=== PATIENT | male | born 1990 | race Caucasian/White ===

== ENCOUNTER 2023-11-17 18:10 | Emergency (ER) | payer OTHER ==
[~2023-11-17] VITALS: Ht 185.4 cm; Wt 143.1 kg
[2023-11-17] MEDS ORDERED: GABA-284 PO (18:20)
[2023-11-17] MEDS ORDERED: ATEN25TA PO (18:20)
[2023-11-17] MEDS ORDERED: EXCETAB32 PO (18:20)
[2023-11-17] MEDS ORDERED: LISI20TA33 PO (18:23)
[2023-11-17] MEDS ORDERED: DULO1CAP4 PO (18:23)
[2023-11-17] MEDS ORDERED: DULO1CAP6 PO (18:23)
[2023-11-17 18:47] LABS: BASO % 0.3 % (0.0-1.0); EOS # 0.2 10^3/uL (0.0-0.5); EOS % 1.6 % (0.0-3.0); HEMATOCRIT 42.3 % (42.0-52.0); HEMOGLOBIN 14.4 g/dl (13.5-17.5); LYMPH # 3.9 10^3/uL (1.5-5.0); LYMPH % 32.1 % (24.0-44.0); MEAN CORPUSCULAR HEMOGLOBIN 30.8 pg (27.0-33.0); MEAN CORPUSCULAR VOLUME 90.6 fl (80.0-96.0); MONO # 0.7 10^3/uL (0.0-0.8); MONO % 6.1 % (2.0-8.0); NEUTROPHILS # 7.1 10^3/uL (1.5-8.5); NEUTROPHILS % 58.5 % (36.0-66.0); PLATELET COUNT, AUTOMATED 247 10^3/uL (150-450); RED BLOOD COUNT 4.67 10^6/uL (4.30-6.10); WHITE BLOOD COUNT 12.2 10^3/uL (4.0-10.0)
[2023-11-17] MEDS: NITROGLYCERIN 0.4MG SUBL TABLET SL PRN (18:53)
[2023-11-17 19:09] LABS: LIPASE 74 U/L (12-53)
[2023-11-17 19:11] LABS: ALBUMIN 4.1 G/DL (3.2-5.2); ALKALINE PHOSPHATASE 89 U/L (46-116); ALT/SGPT 57 U/L (7.0-40); AST/SGOT 35 U/L (<34); BILIRUBIN,DIRECT < 0.1 MG/DL (<0.4); BILIRUBIN,TOTAL 0.2 MG/DL (0.3-1.2); BLOOD UREA NITROGEN 13 MG/DL (9-23); CARBON DIOXIDE LEVEL 28 MMOL/L (20-31); CHLORIDE LEVEL 106 MMOL/L (98-107); CK-MB VALUE MASS < 1.0 NG/ML (<3.6); CREATININE FOR GFR 0.64 MG/DL (0.70-1.30); GLOMERULAR FILTRATION RATE > 60.0 (>60); GLUCOSE, FASTING 111 MG/DL (60-100); POTASSIUM SERUM 4.1 MMOL/L (3.5-5.1); SODIUM LEVEL 136 MMOL/L (136-145); TOTAL PROTEIN 6.5 G/DL (5.7-8.2)
[2023-11-17 19:15] LABS: FREE T4 0.96 NG/DL (0.89-1.76); THYROID STIMULATING HORMONE 1.135 uIU/ML (0.55-4.78)
[2023-11-17 19:19] LABS: CPK CREATINE PHOSPHOKINASE 169 U/L (46-171); MB/CK RELATIVE INDEX 0.59 (< OR =4)
[2023-11-17 19:26] VITALS: BP 155/71
[2023-11-17 20:20] LABS: CK-MB VALUE MASS < 1.0 NG/ML (<3.6)
[2023-11-17 20:22] LABS: CPK CREATINE PHOSPHOKINASE 165 U/L (46-171)
[2023-11-17] MEDS: KETOROLAC 30 MG/ML 1ML VIAL IV ONE (20:23)
[2023-11-17 21:15] VITALS: BP 148/69; TEMP 98; O2SAT 97
== END 2023-11-17 21:51 | disposition home or self-care (01) ==
LOC: M ED 18:10
DX: R07.9 Chest pain, unspecified (principal); I45.10 Unspecified right bundle-branch block; I45.81 Long QT syndrome; I10 Essential (primary) hypertension; F17.200 Nicotine dependence, unspecified, uncomplicated; Z79.82 Long term (current) use of aspirin; Z79.891 Long term (current) use of opiate analgesic; Z79.811 Long term (current) use of aromatase inhibitors; Z79.899 Other long term (current) drug therapy
CPT/HCPCS: 71045; 80048; 80076; 82550; 82553; 83690; 83880; 84439; 84443; 84484; 85025; 85379; 93005; 93041; 94760; 96374; 99285; J1885

== ENCOUNTER 2023-12-02 11:27 | Emergency (ER) | payer OTHER ==
[~2023-12-02] VITALS: Ht 185.4 cm; Wt 144.0 kg
[~2023-12-02 11:27] MED LIST: ATEN25TA PO; DULO1CAP4 PO; DULO1CAP6 PO; EXCETAB32 PO; GABA-284 PO; LISI20TA33 PO
[2023-12-02 12:27] LABS: BASO % 0.3 % (0.0-1.0); EOS # 0.1 10^3/uL (0.0-0.5); EOS % 1.5 % (0.0-3.0); HEMATOCRIT 39.3 % (42.0-52.0); HEMOGLOBIN 13.7 g/dl (13.5-17.5); LYMPH # 3.8 10^3/uL (1.5-5.0); LYMPH % 42.1 % (24.0-44.0); MEAN CORPUSCULAR HGB CONC 34.9 g/dl (32.0-36.5); MEAN CORPUSCULAR VOLUME 88.9 fl (80.0-96.0); MONO # 0.5 10^3/uL (0.0-0.8); MONO % 5.8 % (2.0-8.0); NEUTROPHILS # 4.4 10^3/uL (1.5-8.5); NEUTROPHILS % 49.1 % (36.0-66.0); PLATELET COUNT, AUTOMATED 271 10^3/uL (150-450); RED BLOOD COUNT 4.42 10^6/uL (4.30-6.10)
[2023-12-02] MEDS: ASPIRIN 325 MG TAB PO ONE (12:41)
[2023-12-02 12:52] LABS: CK-MB VALUE MASS < 1.0 NG/ML (<3.6)
[2023-12-02 12:54] LABS: BLOOD UREA NITROGEN 11 MG/DL (9-23); CALCIUM LEVEL 9.2 MG/DL (8.5-10.1); CARBON DIOXIDE LEVEL 26 MMOL/L (20-31); CHLORIDE LEVEL 107 MMOL/L (98-107); CREATININE FOR GFR 0.63 MG/DL (0.70-1.30); GLOMERULAR FILTRATION RATE > 60.0 (>60); GLUCOSE, FASTING 98 MG/DL (60-100); POTASSIUM SERUM 4.1 MMOL/L (3.5-5.1); SODIUM LEVEL 140 MMOL/L (136-145)
[2023-12-02 12:57] LABS: CPK CREATINE PHOSPHOKINASE 148 U/L (46-171); MB/CK RELATIVE INDEX 0.67 (< OR =4)
[2023-12-02] MEDS ORDERED: HOME MED LIST COMPLETE! XX SCH (13:45)
[2023-12-02 13:56] LABS: CK-MB VALUE MASS < 1.0 NG/ML (<3.6)
[2023-12-02 13:57] LABS: CPK CREATINE PHOSPHOKINASE 146 U/L (46-171); MB/CK RELATIVE INDEX 0.68 (< OR =4)
[2023-12-02 14:01] VITALS: TEMP 97.4
[2023-12-02 14:30] VITALS: BP 135/81; O2SAT 97
== END 2023-12-02 14:40 | disposition home or self-care (01) ==
LOC: M ED 11:27
DX: F41.9 Anxiety disorder, unspecified (principal); I10 Essential (primary) hypertension; Z87.891 Personal history of nicotine dependence

== ENCOUNTER 2023-12-23 08:38 | Emergency (ER) | payer OTHER ==
[~2023-12-23] VITALS: Ht 185.4 cm; Wt 137.5 kg
[2023-12-23] MEDS ORDERED: TRAZ-252 PO (08:54)
[2023-12-23] MEDS ORDERED: GABA-284 PO (08:54)
[2023-12-23 09:23] LABS: HEMATOCRIT 44.7 % (42.0-52.0); HEMOGLOBIN 15.4 g/dl (13.5-17.5); MEAN CORPUSCULAR HEMOGLOBIN 30.9 pg (27.0-33.0); MEAN CORPUSCULAR HGB CONC 34.5 g/dl (32.0-36.5); MEAN CORPUSCULAR VOLUME 89.6 fl (80.0-96.0); PLATELET COUNT, AUTOMATED 290 10^3/uL (150-450); RED BLOOD COUNT 4.99 10^6/uL (4.30-6.10); WHITE BLOOD COUNT 11.1 10^3/uL (4.0-10.0)
[2023-12-23] MEDS: KETOROLAC 30 MG/ML 1ML VIAL IV ONE (09:33)
[2023-12-23 09:48] LABS: LIPASE 59 U/L (12-53)
[2023-12-23 09:50] LABS: ALKALINE PHOSPHATASE 101 U/L (46-116); ALT/SGPT 52 U/L (7.0-40); AST/SGOT 20 U/L (<34); BILIRUBIN,DIRECT 0.3 MG/DL (<0.4); BILIRUBIN,TOTAL 0.9 MG/DL (0.3-1.2); BLOOD UREA NITROGEN 11 MG/DL (9-23); CALCIUM LEVEL 9.7 MG/DL (8.5-10.1); CARBON DIOXIDE LEVEL 27 MMOL/L (20-31); CHLORIDE LEVEL 107 MMOL/L (98-107); CK-MB VALUE MASS < 1.0 NG/ML (<3.6); CREATININE FOR GFR 0.83 MG/DL (0.70-1.30); GLOMERULAR FILTRATION RATE > 60.0 (>60); GLUCOSE, FASTING 123 MG/DL (60-100); POTASSIUM SERUM 4.8 MMOL/L (3.5-5.1); SODIUM LEVEL 137 MMOL/L (136-145); TOTAL PROTEIN 6.8 G/DL (5.7-8.2)
[2023-12-23 09:52] LABS: FREE T4 0.99 NG/DL (0.89-1.76)
[2023-12-23 09:54] LABS: CPK CREATINE PHOSPHOKINASE 131 U/L (46-171); MB/CK RELATIVE INDEX 0.76 (< OR =4)
[2023-12-23 10:13] LABS: ATYPICAL LYMPH 5 % (0-5); EOSINOPHILS 1 % (0-3); LYMPHOCYTES 43 % (16-44); MONOCYTES 2 % (0-5); NEUTROPHILS 49 % (28-66)
[2023-12-23 10:14] LABS: PLATELET ESTIMATE NORMAL (NORMAL)
[2023-12-23] MEDS ORDERED: GABA800T4 PO (10:44)
[2023-12-23] MEDS ORDERED: GABA-1171 PO (10:44)
[2023-12-23] MEDS ORDERED: ISOVUE-370 76% 100ML VIAL As Ordered ONE (10:45)
[2023-12-23] MEDS ORDERED: HOME MED LIST COMPLETE! XX SCH (10:45)
[2023-12-23 11:02] LABS: CK-MB VALUE MASS < 1.0 NG/ML (<3.6)
[2023-12-23 11:11] LABS: CPK CREATINE PHOSPHOKINASE 142 U/L (46-171)
[2023-12-23] MEDS ORDERED: ELIQ5TAB PO (11:59)
[2023-12-23 12:59] LABS: VENOUS BASE EXCESS -2.1 (-2.0-2.0); VENOUS HCO3 22.9 MMOL/L (23.0-27.0); VENOUS O2 SATURATION 95.9 % (60.0-80.0); VENOUS PARTIAL PRESSURE CO2 40.3 mmHg (38.0-50.0); VENOUS PARTIAL PRESSURE O2 78.8 mmHg (30.0-50.0); VENOUS PH 7.373 UNITS (7.330-7.430); VENOUS STANDARD HCO3 22.7 MMOL/L; VENOUS TOTAL CO2 24.2 MMOL/L (24.0-28.0)
[2023-12-23 13:19] LABS: INR 1.01; PARTIAL THROMBOPLASTIN TIME 29.1 SECONDS (24.8-34.2)
[2023-12-23] MEDS: ALPRAZolam 0.25 MG TAB PO ONE (13:35)
[2023-12-23] MEDS: APIXABAN 5 MG TAB (ELIQUIS) PO ONE (13:35)
[2023-12-23 13:47] VITALS: BP 152/73; TEMP 97.8; O2SAT 97
[2023-12-23 15:16] LABS: PTT LUPUS TYPE ANTICOAG SCREEN 6.69 (0-1.20)
[2023-12-23 15:24] LABS: DRVV CONFIRM 80.1 SECONDS; LUPUS CONFIRM RATIO 2.07
[2023-12-23 15:25] LABS: NORMALIZED RATIO 3.23 (0.00-1.20)
[2023-12-26 18:11] LABS: HEXAGONAL PHASE PHOSPHOLIPID 3 sec (0-11)
[2024-01-06 15:11] LABS: ANTI THROMBIN 3 ANTIGEN IMMUNO 110 % (72-124); ANTI THROMBIN 3 FUNCT ACTIVITY 137 % (75-135); CARDIOLIPIN IGA ANTIBODY <9 APL U/mL (0-11); CARDIOLIPIN IGG ANTIBODY <9 GPL U/mL (0-14); CARDIOLIPIN IGM ANTIBODY <9 MPL U/mL (0-12); PHOSPHOLIPIDS LEVEL 205 mg/dL (127-261); PROTEIN C FUNCTIONAL ACTIVITY 169 % (73-180); PROTEIN S FUNCTIONAL ACTIVITY 118 % (63-140)
== END 2023-12-23 13:49 | disposition home or self-care (01) ==
LOC: M ED 08:38
DX: I26.99 Other pulmonary embolism without acute cor pulmonale (principal); I10 Essential (primary) hypertension; E78.5 Hyperlipidemia, unspecified; F41.9 Anxiety disorder, unspecified; Z87.891 Personal history of nicotine dependence; Z82.49 Family history of ischemic heart disease and other diseases of the circulatory system; Z79.899 Other long term (current) drug therapy
CPT/HCPCS: 71046; 71275; 80048; 80076; 81240; 81241; 82550; 82553; 82803; 83690; 83880; 84311; 84439; 84443; 84484; 85025; 85300; 85301; 85303; 85305; 85598; 85610; 85613; 85730; 86147; 93005; 93041; 93970; 94760; 96374; 99285; J1885; Q9967

== ENCOUNTER 2023-12-26 07:08 | Observation (INO) | payer OTHER ==
[~2023-12-26] VITALS: Ht 185.4 cm; Wt 138.0 kg
[2023-12-26] VITALS (12 sets, daily range): BP systolic 142–153; BP diastolic 74–83; TEMP 97.3–97.5; O2SAT 92–95
[~2023-12-26 07:08] MED LIST changes: +ELIQ5TAB PO; +GABA-1171 PO; +GABA800T4 PO; +TRAZ-252 PO
[2023-12-26 07:49] LABS: BASO % 0.3 % (0.0-1.0); EOS # 0.2 10^3/uL (0.0-0.5); EOS % 1.4 % (0.0-3.0); HEMATOCRIT 41.3 % (42.0-52.0); HEMOGLOBIN 14.2 g/dl (13.5-17.5); LYMPH # 4.2 10^3/uL (1.5-5.0); LYMPH % 39.4 % (24.0-44.0); MEAN CORPUSCULAR HEMOGLOBIN 30.7 pg (27.0-33.0); MEAN CORPUSCULAR HGB CONC 34.4 g/dl (32.0-36.5); MEAN CORPUSCULAR VOLUME 89.4 fl (80.0-96.0); MONO # 0.6 10^3/uL (0.0-0.8); MONO % 5.9 % (2.0-8.0); NEUTROPHILS # 5.6 10^3/uL (1.5-8.5); NEUTROPHILS % 52.5 % (36.0-66.0); PLATELET COUNT, AUTOMATED 270 10^3/uL (150-450); RED BLOOD COUNT 4.62 10^6/uL (4.30-6.10); WHITE BLOOD COUNT 10.6 10^3/uL (4.0-10.0)
[2023-12-26] MEDS ORDERED: HOME MED LIST COMPLETE! XX SCH ×2 (07:55→11:50)
[2023-12-26] MEDS ORDERED: ELIQ5TAB PO (07:55)
[2023-12-26 08:05] LABS: INR 1.02; PARTIAL THROMBOPLASTIN TIME 32.2 SECONDS (24.8-34.2); PROTHROMBIN TIME 13.1 SECONDS (12.5-14.5)
[2023-12-26 08:11] LABS: LIPASE 38 U/L (12-53)
[2023-12-26 08:13] LABS: CPK CREATINE PHOSPHOKINASE 88 U/L (46-171)
[2023-12-26 08:18] LABS: ALBUMIN 3.8 G/DL (3.2-5.2); ALKALINE PHOSPHATASE 98 U/L (46-116); ALT/SGPT 54 U/L (7.0-40); AST/SGOT 26 U/L (<34); BILIRUBIN,DIRECT 0.2 MG/DL (<0.4); BILIRUBIN,TOTAL 0.5 MG/DL (0.3-1.2); BLOOD UREA NITROGEN 10 MG/DL (9-23); CALCIUM LEVEL 8.8 MG/DL (8.5-10.1); CARBON DIOXIDE LEVEL 25 MMOL/L (20-31); CHLORIDE LEVEL 105 MMOL/L (98-107); CK-MB VALUE MASS < 1.0 NG/ML (<3.6); CREATININE FOR GFR 0.63 MG/DL (0.70-1.30); FREE T4 1.06 NG/DL (0.89-1.76); GLOMERULAR FILTRATION RATE > 60.0 (>60); GLUCOSE, FASTING 110 MG/DL (60-100); MB/CK RELATIVE INDEX 1.13 (< OR =4); SODIUM LEVEL 138 MMOL/L (136-145); THYROID STIMULATING HORMONE 2.879 uIU/ML (0.55-4.78); TOTAL PROTEIN 6.4 G/DL (5.7-8.2)
[2023-12-26] MEDS ORDERED: ISOVUE-370 76% 100ML VIAL As Ordered ONE (08:29)
[2023-12-26] MEDS: APIXABAN 5 MG TAB (ELIQUIS) PO SCH (12:30)
[2023-12-26] MEDS ORDERED: NITROGLYCERIN 0.4MG SUBL TABLET SL STA (18:45)
[2023-12-26] MEDS: KETOROLAC 30 MG/ML 1ML VIAL IV ONE (18:59)
[2023-12-26] MEDS: PANTOPRAZOLE 40MG TAB (PROTONIX) PO ONE (19:04)
[2023-12-26] MEDS ORDERED: GABAPENTIN 100 MG CAP PO PRN (19:45)
[2023-12-26] MEDS ORDERED: atenoloL 25 MG TAB PO SCH (21:00)
[2023-12-26] MEDS: atenoloL 25 MG TAB PO SCH (21:56)
[2023-12-26] MEDS: traZODone 25MG PER 1/2 TABLET PO SCH (21:56)
[2023-12-26] MEDS: SUCRALFATE SUSP 1GM/10ML UD PO SCH (21:56)
[2023-12-26] MEDS: GABAPENTIN 400MG CAP PO SCH (21:57)
[2023-12-27] VITALS (15 sets, daily range): BP systolic 102–143; BP diastolic 56–78; TEMP 97–97.6; O2SAT 93–99
[2023-12-27] MEDS ORDERED: E-Z-PAQUE 96% w/w SUSP 176GM BTL As Ordered ONE (08:11)
[2023-12-27] MEDS ORDERED: E-Z-GAS II EFFERVESCENT PACKET (SODIUM BICARB./CITRIC ACID/SIMETHICONE) As Ordered ONE (08:11)
[2023-12-27] MEDS ORDERED: E-Z-HD 98% w/w 340GM SUSP BTL As Ordered ONE (08:12)
[2023-12-27] MEDS: PANTOPRAZOLE 40MG TAB (PROTONIX) PO SCH (10:47)
[2023-12-27] MEDS: DULoxetine 30MG CAPSULE (CYMBALTA) PO SCH (10:47)
[2023-12-27] MEDS: ACETAMINOPHEN 500 MG TAB PO PRN (12:55)
[2023-12-28] VITALS: BP 141/64; TEMP 97.5; O2SAT 95
[2023-12-28 04:09] VITALS: BP 121/58; TEMP 97.7; O2SAT 94
[2023-12-28 06:09] LABS: BASO # 0.1 10^3/uL (0.0-0.2); BASO % 0.5 % (0.0-1.0); EOS # 0.2 10^3/uL (0.0-0.5); HEMATOCRIT 41.1 % (42.0-52.0); LYMPH # 4.6 10^3/uL (1.5-5.0); LYMPH % 42.1 % (24.0-44.0); MEAN CORPUSCULAR HEMOGLOBIN 30.8 pg (27.0-33.0); MEAN CORPUSCULAR HGB CONC 34.1 g/dl (32.0-36.5); MEAN CORPUSCULAR VOLUME 90.5 fl (80.0-96.0); MONO # 0.7 10^3/uL (0.0-0.8); MONO % 6.8 % (2.0-8.0); NEUTROPHILS # 5.2 10^3/uL (1.5-8.5); NEUTROPHILS % 47.9 % (36.0-66.0); PLATELET COUNT, AUTOMATED 264 10^3/uL (150-450); RED BLOOD COUNT 4.54 10^6/uL (4.30-6.10); WHITE BLOOD COUNT 10.9 10^3/uL (4.0-10.0)
[2023-12-28 06:34] LABS: BLOOD UREA NITROGEN 13 MG/DL (9-23); CALCIUM LEVEL 9.3 MG/DL (8.5-10.1); CARBON DIOXIDE LEVEL 27 MMOL/L (20-31); CHLORIDE LEVEL 105 MMOL/L (98-107); CREATININE FOR GFR 0.73 MG/DL (0.70-1.30); GLOMERULAR FILTRATION RATE > 60.0 (>60); GLUCOSE, FASTING 106 MG/DL (60-100); MAGNESIUM LEVEL 2.2 MG/DL (1.8-2.4); POTASSIUM SERUM 4.5 MMOL/L (3.5-5.1); SODIUM LEVEL 139 MMOL/L (136-145)
[2023-12-28 07:55] VITALS: BP 133/78; TEMP 97.7; O2SAT 95
[2023-12-28 09:30] VITALS: BP 133/78
[2023-12-28] MEDS ORDERED: PANT40TA29 PO (11:06)
[2023-12-28] MEDS ORDERED: SUCR1ORA PO (11:06)
[2023-12-31] MEDS ORDERED: APIXABAN 5 MG TAB (ELIQUIS) PO SCH (09:00)
[2024-01-11 17:11] LABS: ANTI THROMBIN 3 ANTIGEN IMMUNO 107 % (72-124); ANTI THROMBIN 3 FUNCT ACTIVITY 166 % (75-135); ANTINUCLEAR ANTIBODIES DIRECT Negative (Negative)
== END 2023-12-28 12:26 | disposition home or self-care (01) ==
LOC: EDBD 07:08 → M ED 07:08 → M ED INP 11:42 → INTOOBSV 11:42 → ENRESERV 12:20 → M PCU 13:00
PROVIDERS: ADMIT General Practice; ATTEND General Practice
DX: R55 Syncope and collapse (principal); I26.99 Other pulmonary embolism without acute cor pulmonale; I10 Essential (primary) hypertension; G43.909 Migraine, unspecified, not intractable, without status migrainosus; H57.04 Mydriasis; R20.2 Paresthesia of skin; R00.2 Palpitations; E78.5 Hyperlipidemia, unspecified; G47.00 Insomnia, unspecified; F32.A Depression, unspecified; F43.10 Post-traumatic stress disorder, unspecified; G89.29 Other chronic pain; K58.9 Irritable bowel syndrome, unspecified; J44.9 Chronic obstructive pulmonary disease, unspecified; G47.33 Obstructive sleep apnea (adult) (pediatric); E66.9 Obesity, unspecified; K44.9 Diaphragmatic hernia without obstruction or gangrene; K21.9 Gastro-esophageal reflux disease without esophagitis; F41.9 Anxiety disorder, unspecified; Z87.891 Personal history of nicotine dependence; Z82.49 Family history of ischemic heart disease and other diseases of the circulatory system; Z79.899 Other long term (current) drug therapy; Z79.01 Long term (current) use of anticoagulants
CPT/HCPCS: 36415; 70551; 71045; 71275; 74246; 80047; 80048; 80076; 81240; 81241; 82550; 82553; 83690; 83735; 84439; 84443; 84484; 85025; 85300; 85301; 85384; 85610; 85730; 86038; 93005; 93041; 93306; 94760; 96374; 97161; 99285; G0378; J1885; Q9967

== ENCOUNTER 2024-03-17 17:50 | Emergency (ER) | payer OTHER ==
[~2024-03-17] VITALS: Ht 185.4 cm; Wt 137.7 kg
[~2024-03-17 17:50] MED LIST changes: +PANT40TA29 PO; +SUCR1ORA PO
[2024-03-17] MEDS ORDERED: PANT20TA6 PO (18:08)
[2024-03-17] MEDS ORDERED: LOSA50TA5 PO (18:09)
[2024-03-17] MEDS ORDERED: ZOLO100T PO (18:09)
[2024-03-17] MEDS ORDERED: TRAZ-257 PO (18:09)
[2024-03-17] MEDS ORDERED: BISO5TAB14 PO (18:09)
[2024-03-17] MEDS ORDERED: VITA200012 PO (18:25)
[2024-03-17 18:54] LABS: BASO # 0.1 10^3/uL (0.0-0.2); BASO % 0.5 % (0.0-1.0); EOS # 0.2 10^3/uL (0.0-0.5); EOS % 1.8 % (0.0-3.0); HEMATOCRIT 44.9 % (42.0-52.0); HEMOGLOBIN 15.6 g/dl (13.5-17.5); LYMPH # 1.9 10^3/uL (1.5-5.0); LYMPH % 19.5 % (24.0-44.0); MEAN CORPUSCULAR HEMOGLOBIN 30.5 pg (27.0-33.0); MEAN CORPUSCULAR HGB CONC 34.7 g/dl (32.0-36.5); MEAN CORPUSCULAR VOLUME 87.9 fl (80.0-96.0); MONO # 0.8 10^3/uL (0.0-0.8); MONO % 7.8 % (2.0-8.0); NEUTROPHILS # 6.9 10^3/uL (1.5-8.5); NEUTROPHILS % 69.8 % (36.0-66.0); PLATELET COUNT, AUTOMATED 278 10^3/uL (150-450); RED BLOOD COUNT 5.11 10^6/uL (4.30-6.10); WHITE BLOOD COUNT 9.8 10^3/uL (4.0-10.0)
[2024-03-17 19:06] LABS: INR 1.08; PARTIAL THROMBOPLASTIN TIME 33.4 SECONDS (24.8-34.2); PROTHROMBIN TIME 13.7 SECONDS (12.5-14.5)
[2024-03-17 19:31] LABS: THYROID STIMULATING HORMONE 0.843 uIU/ML (0.55-4.78)
[2024-03-17 19:37] LABS: CK-MB VALUE MASS < 1.0 NG/ML (<3.6)
[2024-03-17 19:39] LABS: CPK CREATINE PHOSPHOKINASE 131 U/L (46-171); MB/CK RELATIVE INDEX 0.76 (< OR =4)
[2024-03-17 19:40] LABS: ALKALINE PHOSPHATASE 106 U/L (46-116); ALT/SGPT 34 U/L (7.0-40); AST/SGOT 15 U/L (<34); BILIRUBIN,DIRECT 0.1 MG/DL (<0.4); BILIRUBIN,TOTAL 0.5 MG/DL (0.3-1.2); BLOOD UREA NITROGEN 10 MG/DL (9-23); CALCIUM LEVEL 9.6 MG/DL (8.5-10.1); CARBON DIOXIDE LEVEL 24 MMOL/L (20-31); CHLORIDE LEVEL 107 MMOL/L (98-107); CREATININE FOR GFR 0.76 MG/DL (0.70-1.30); GLOMERULAR FILTRATION RATE > 60.0 (>60); GLUCOSE, FASTING 117 MG/DL (60-100); POTASSIUM SERUM 3.9 MMOL/L (3.5-5.1); SODIUM LEVEL 139 MMOL/L (136-145); TOTAL PROTEIN 6.6 G/DL (5.7-8.2)
[2024-03-17] MEDS ORDERED: ISOVUE-370 76% 100ML VIAL As Ordered ONE (19:48)
[2024-03-17 21:17] LABS: CK-MB VALUE MASS < 1.0 NG/ML (<3.6)
[2024-03-17 21:19] LABS: CPK CREATINE PHOSPHOKINASE 127 U/L (46-171); MB/CK RELATIVE INDEX 0.78 (< OR =4)
[2024-03-17 22:15] VITALS: BP 125/57; TEMP 98.5; O2SAT 95; O2SAT 97
== END 2024-03-17 22:36 | disposition home or self-care (01) ==
LOC: M ED 17:50
DX: R06.02 Shortness of breath (principal); R94.31 Abnormal electrocardiogram [ECG] [EKG]; F41.9 Anxiety disorder, unspecified; I10 Essential (primary) hypertension; F43.10 Post-traumatic stress disorder, unspecified; F32.A Depression, unspecified; F17.210 Nicotine dependence, cigarettes, uncomplicated; Z79.899 Other long term (current) drug therapy
CPT/HCPCS: 36415; 71046; 71275; 80048; 80076; 82550; 82553; 83880; 84443; 84484; 85025; 85610; 85730; 93005; 93041; 94760; 99285; Q9967

== ENCOUNTER 2024-04-20 13:55 | Emergency (ER) | payer OTHER ==
[~2024-04-20] VITALS: Ht 185.4 cm; Wt 141.6 kg
[~2024-04-20 13:55] MED LIST changes: +BISO5TAB14 PO; +LOSA50TA5 PO; +PANT20TA6 PO; +TRAZ-257 PO; +VITA200012 PO; +ZOLO100T PO
[2024-04-20 17:20] VITALS: BP 136/76; TEMP 97.9; O2SAT 98
== END 2024-04-20 17:20 | disposition home or self-care (01) ==
LOC: M ED 13:55
DX: H11.32 Conjunctival hemorrhage, left eye (principal); Z79.01 Long term (current) use of anticoagulants; Z79.899 Other long term (current) drug therapy

== ENCOUNTER → 2024-07-13 | Outpatient (CLI) | payer OTHER ==
[~2024-07-13] MED LIST changes: +ELIQ2.5T PO; +GABA-1635 PO; -GABA800T4 PO
== END ==
LOC: M SLEEP 20:00
PROVIDERS: ATTEND Nurse Practitioner Family
DX: G47.33 Obstructive sleep apnea (adult) (pediatric) (principal)

== ENCOUNTER → 2025-03-18 | Outpatient (CLI) | payer OTHER | LOC: M SLEEP 20:00 | PROVIDERS: ATTEND Nurse Practitioner Family | DX: G47.33 Obstructive sleep apnea (adult) (pediatric) (principal) ==

== ENCOUNTER → 2025-05-08 | Outpatient (CLI) | payer OTHER ==
[2025-05-08 10:56] LABS: BASO # 0.0 10^3/uL (0.0-0.2); BASO % 0.5 % (0.0-1.0); EOS # 0.2 10^3/uL (0.0-0.5); EOS % 2.0 % (0.0-3.0); LYMPH # 1.4 10^3/uL (1.5-5.0); LYMPH % 18.0 % (24.0-44.0); MONO # 0.6 10^3/uL (0.0-0.8); MONO % 7.2 % (2.0-8.0); NEUTROPHILS # 5.7 10^3/uL (1.5-8.5); NEUTROPHILS % 71.7 % (36.0-66.0); PLATELET COUNT, AUTOMATED 251 10^3/uL (150-450)
[2025-05-08 11:31] LABS: ALT/SGPT 47 U/L (7.0-40); AST/SGOT 28 U/L (<34); CALCIUM LEVEL 9.6 MG/DL (8.5-10.1); CARBON DIOXIDE LEVEL 24 MMOL/L (20-31); CHLORIDE LEVEL 108 MMOL/L (98-107); CREATININE FOR GFR 0.78 MG/DL (0.70-1.30); GLOMERULAR FILTRATION RATE > 90.0 (>60); POTASSIUM SERUM 4.0 MMOL/L (3.5-5.1); SODIUM LEVEL 143 MMOL/L (136-145)
[2025-05-08 11:58] LABS: HIV 1&2 SCREEN NEGATIVE (NEGATIVE)
[2025-05-08 12:06] LABS: HEPATITIS C VIRUS ABY INDEX < 0.02 INDEX (<0.8)
== END ==
LOC: M LAB 10:04
PROVIDERS: ATTEND Nurse Practitioner Family
DX: Z01.89 Encounter for other specified special examinations (principal); L73.2 Hidradenitis suppurativa

== ENCOUNTER → 2025-05-08 | Outpatient (CLI) | payer OTHER ==
[2025-05-08 11:29] LABS: CALCIUM LEVEL 9.4 MG/DL (8.5-10.1); CARBON DIOXIDE LEVEL 24 MMOL/L (20-31); CHLORIDE LEVEL 108 MMOL/L (98-107); CREATININE FOR GFR 0.79 MG/DL (0.70-1.30); GLOMERULAR FILTRATION RATE > 90.0 (>60); POTASSIUM SERUM 4.1 MMOL/L (3.5-5.1); SODIUM LEVEL 144 MMOL/L (136-145)
== END ==
LOC: M LAB 09:59
PROVIDERS: ATTEND Physician Assistant
DX: I10 Essential (primary) hypertension (principal)

== ENCOUNTER 2025-07-28 23:30 | Emergency (ER) | payer OTHER ==
[~2025-07-28] VITALS: Ht 185.4 cm; Wt 131.8 kg
[2025-07-29 00:34] LABS: BASO # 0.0 10^3/uL (0.0-0.2); BASO % 0.5 % (0.0-1.0); EOS # 0.2 10^3/uL (0.0-0.5); EOS % 2.5 % (0.0-3.0); LYMPH # 2.6 10^3/uL (1.5-5.0); LYMPH % 34.8 % (24.0-44.0); MONO # 0.6 10^3/uL (0.0-0.8); MONO % 7.2 % (2.0-8.0); NEUTROPHILS # 4.1 10^3/uL (1.5-8.5); NEUTROPHILS % 54.5 % (36.0-66.0); PLATELET COUNT, AUTOMATED 259 10^3/uL (150-450)
[2025-07-29 01:17] LABS: ALT/SGPT 33 U/L (7.0-40); AST/SGOT 22 U/L (<34); CALCIUM LEVEL 8.5 MG/DL (8.5-10.1); CARBON DIOXIDE LEVEL 22 MMOL/L (20-31); CHLORIDE LEVEL 110 MMOL/L (98-107); CK-MB VALUE MASS < 1.0 NG/ML (<3.6); CPK CREATINE PHOSPHOKINASE 148 U/L (46-171); CREATININE FOR GFR 0.85 MG/DL (0.70-1.30); FREE T4 1.09 NG/DL (0.89-1.76); GLOMERULAR FILTRATION RATE > 90.0 (>60); POTASSIUM SERUM 3.8 MMOL/L (3.5-5.1); SODIUM LEVEL 143 MMOL/L (136-145)
[2025-07-29 01:29] LABS: CK-MB VALUE MASS < 1.0 NG/ML (<3.6)
[2025-07-29 01:31] LABS: CPK CREATINE PHOSPHOKINASE 131 U/L (46-171)
[2025-07-29 02:01] LABS: INR 0.91
[2025-07-29] MEDS ORDERED: ISOVUE-370 76% 100 ML VIAL As Ordered ONE (03:30)
[2025-07-29] MEDS: NS (Normal Saline) 0.9% 1,000 ML IV ONE (03:49)
[2025-07-29] MEDS: KETOROLAC 30 MG/ML 1 ML VIAL IV ONE (03:49)
[2025-07-29] MEDS ORDERED: KETO-204 PO (04:02)
[2025-07-29 04:30] VITALS: BP 131/63; TEMP 97.5; O2SAT 97
== END 2025-07-29 04:37 | disposition home or self-care (01) ==
LOC: M ED 07-29 00:01
DX: M94.0 Chondrocostal junction syndrome [Tietze] (principal); I10 Essential (primary) hypertension; E78.5 Hyperlipidemia, unspecified; K21.9 Gastro-esophageal reflux disease without esophagitis; E55.9 Vitamin D deficiency, unspecified; Z86.711 Personal history of pulmonary embolism; F32.A Depression, unspecified; F41.9 Anxiety disorder, unspecified; F17.200 Nicotine dependence, unspecified, uncomplicated; Z79.01 Long term (current) use of anticoagulants; Z79.899 Other long term (current) drug therapy
CPT/HCPCS: 71045; 71275; 80048; 80076; 82550; 82553; 83690; 83880; 84439; 84443; 84484; 85025; 85610; 85730; 93005; 93041; 94760; 96361; 96374; 99285; J1885; Q9967